=== PATIENT | male | born 1990 | race Caucasian/White ===

== ENCOUNTER 2016-12-20 08:29 | Emergency (ER) | payer MEDICAID ==
[~2016-12-20] VITALS: Ht 177.8 cm; Wt 90.7 kg
[2016-12-20 08:33] VITALS: BP 162/61; PULSE 99; RESP 18; TEMP 97.1; O2SAT 99
--- NOTE | 2016-12-20 08:37 | NUR ---
Pt to bed 8 Dr. Hay at bedside for evaluation
--- NOTE | 2016-12-20 08:40 | NUR ---
PT [id number] C/O EXACERBATION OF ANXIETY.PT H/O PSYCH AND ASTHMA.
--- NOTE | 2016-12-20 08:42 | NUR ---
ER at bedside examining patient.
[2016-12-20] MEDS ORDERED: LORazepam 1 MG TABLET PO ONE (08:45)
[2016-12-20] MEDS ORDERED: OLANZapine 10 MG TAB.RAPDIS PO ONE (08:45)
--- NOTE | 2016-12-20 09:15 | NUR ---
PT TOLERATED MEDICATION WELL.PT REPORTS ANXIETY SUBSIDING.
[2016-12-20 10:10] VITALS: BP 113/64; PULSE 94; RESP 18; TEMP 97.1; O2SAT 99
--- NOTE | 2016-12-20 10:10 | NUR ---
Patient given written and verbal discharge instructions and verbalizes understanding. ER MD discussed with patient the results and treatment provided. Given copies of tests performed in ER. Patient in stable condition. ID arm band removed. Patient educated on pain management and to follow up with PMD. Pain Scale 0. Opportunity for questions provided and answered.
== END 2016-12-20 10:10 | disposition home or self-care (01) ==
LOC: SED 08:29
DX: F41.9 Anxiety disorder, unspecified (principal); F29 Unspecified psychosis not due to a substance or known physiological condition; F20.9 Schizophrenia, unspecified
CPT/HCPCS: 99283